=== PATIENT | female | born 1960 | race Caucasian/White ===

== ENCOUNTER 2017-05-18 17:10 | Emergency (ER) | payer OTHER ==
[~2017-05-18] VITALS: Ht 167.6 cm; Wt 58.5 kg
[2017-05-18] MEDS ORDERED: KEFLEX500 MG (17:48)
[2017-05-18] MEDS ORDERED: INTESTINEX680 M1 PO (19:55)
[2017-05-18] MEDS ORDERED: MUPIROCIN15 GM TOP (19:55)
[2017-05-18] MEDS ORDERED: CLINDAMYCIN HC300 MG PO (19:55)
== END 2017-05-18 20:11 | disposition home or self-care (01) ==
LOC: ER 17:10
DX: L03.116 Cellulitis of left lower limb (principal)